=== PATIENT | female | born 1955 | race African-American/Black ===

== ENCOUNTER 2016-03-11 10:51 | Inpatient (IN) | payer MEDICARE, OTHER ==
[~2016-03-11] VITALS: Ht 157.5 cm; Wt 81.6 kg
[~2016-03-11 10:51] MED LIST: OXYC-323 PO
[2016-03-11] MEDS ORDERED: IV NORMAL SALINE 1000ML BAG 1,000 ML IV SCH (11:31)
[2016-03-11] MEDS ORDERED: FAMOTIDINE 20 MG/2 ML VIAL IVP ONE (11:45)
[2016-03-11] MEDS ORDERED: ONDANSETRON PF 4 MG/2 ML VIAL. IV ONE (11:45)
[2016-03-11] MEDS: FENTANYL PF 100 MCG/2 ML VIAL. IV PRN ×2 (11:59→13:22)
[2016-03-11 12:06] LABS: BASO % 1 % (0-3); EOS % 2 % (0-3); HEMOGLOBIN 16.6 g/dL (12.0-15.5); LYMPH # 2.4 x10^3/uL (1.0-4.8); LYMPH % 43 % (24-48); MEAN CORPUSCULAR HEMOGLOBIN 31 pg (25-35); MEAN CORPUSCULAR HGB CONC 34 g/dL (31-37); MEAN CORPUSCULAR VOLUME 90 fL (79-100); MONO % 7 % (0-9); NEUT % 49 % (31-73); PLATELET COUNT 171 x10^3/uL (140-400); RED BLOOD COUNT 5.44 x10^6/uL (3.50-5.40); RED CELL DISTRIBUTION WIDTH 14.5 % (11.5-14.5); WHITE BLOOD COUNT 5.5 x10^3/uL (4.0-11.0)
[2016-03-11 12:12] LABS: CALCIUM 9.5 mg/dL (8.5-10.1); CREATININE 0.8 mg/dL (0.6-1.0); GFR 88.5
[2016-03-11] MEDS ORDERED: CONTRAST GIVEN MC PRN (12:15)
[2016-03-11] MEDS ORDERED: IOHEXOL 300 MG/ML 75 ML VIAL IV ONE (12:15)
[2016-03-11 12:18] LABS: ALBUMIN 4.3 g/dL (3.4-5.0); TOTAL BILIRUBIN 0.5 mg/dL (0.2-1.0); TOTAL PROTEIN 8.5 g/dL (6.4-8.2)
[2016-03-11] MEDS ORDERED: hydrALAZINE 20 MG/ML VIAL. IVP ONE (12:30)
--- NOTE | 2016-03-11 12:40 | EKG ---
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
--- NOTE | 2016-03-11 13:02 | RAD ---
EXAM: Abdomen and pelvis CT with intravenous contrast. HISTORY: Epigastric pain. TECHNIQUE: Computed tomographic images of the abdomen and pelvis were obtained following the administration of 75 cc Omnipaque 300 intravenous contrast. Multiplanar reformatting was performed. COMPARISON: None. FINDINGS: Evaluation of the lower thorax demonstrates right middle lobe atelectasis or scarring and basilar atelectasis. There is no infiltrate or effusion. There is hepatic steatosis. The gallbladder, pancreas, spleen and adrenal glands are unremarkable. There are multiple bilateral renal cysts, the largest of which measures 5.8 cm within the left lower pole. No solid renal lesion is seen. There is no hydronephrosis. The appendix is unremarkable. There is no evidence of bowel obstruction. The bladder, uterus and ovaries are unremarkable. There is no pathologically enlarged lymph node. There is no suspicious osseous lesion. There are degenerative changes involving the lower lumbar spine. IMPRESSION: 1. Hepatic steatosis. 2. Multiple bilateral renal cysts. PQRS Compliance Statement: One or more of the following individualized dose reduction techniques were utilized for this examination: 1. Automated exposure control 2. Adjustment of the mA and/or kV according to patient size 3. Use of iterative reconstruction technique
[2016-03-11 13:34] LABS: BILIRUBIN,URINE NEGATIVE (NEG); GLUCOSE,URINE 250 mg/dL (NEG); NITRITE,URINE NEGATIVE (NEG); PROTEIN,URINE NEGATIVE (NEG-TRACE)
[2016-03-11 13:42] LABS: BACTERIA,URINE MODERATE /HPF (0-FEW); RBC,URINE 0 /HPF (0-2); SQUAMOUS EPITHELIAL CELL,UR MOD /LPF
[2016-03-11] MEDS ORDERED: ONDANSETRON PF 4 MG/2 ML VIAL. IV PRN (14:30)
[2016-03-11] MEDS ORDERED: FENTANYL PF 100 MCG/2 ML VIAL. IV PRN (14:30)
[2016-03-11] MEDS ORDERED: ACETAMINOPHEN 325 MG TABLET. PO PRN (14:30)
[2016-03-11] MEDS ORDERED: hydrALAZINE 20 MG/ML VIAL. IVP PRN (14:30)
--- NOTE | 2016-03-11 14:30 | PHYS DOC ---
Past Medical History Past Medical History: Diabetes-Type II, High Cholesterol, Hypertension Past Surgical History: No Surgical History Alcohol Use: None Drug Use: None Adult General Chief Complaint Chief Complaint: ABDOMINAL PAIN HPI HPI Patient is a 60 year old female who presents with complaint of severe abdominal pain. Patient states that she has been having pain in her left upper quadrant for the past 2 weeks, however the pain has become quite severe over the past 24 hours. Patient rates her pain currently is 10 out of 10. Patient describes the pain as a "knot" sensation in her stomach. Patient states that radiates towards the left side of her back. Patient denies associated vomiting but has had nausea. Patient has not had any fevers or diarrhea. The patient states that she has not had any previous workup but she is concerned that it may be her gallbladder. Patient has history of hypertension and type 2 diabetes mellitus. Patient has not taken any medications to help with symptoms. Review of Systems Review of Systems Constitutional: Denies fever or chills [] Eyes: Denies change in visual acuity, redness, or eye pain [] HENT: Denies nasal congestion or sore throat [] Respiratory: Denies cough or shortness of breath [] Cardiovascular: No additional information not addressed in HPI [] GI: Abdominal pain, denies nausea, vomiting, bloody stools or diarrhea [] : Denies dysuria or hematuria [] Musculoskeletal: Denies back pain or joint pain [] Integument: Denies rash or skin lesions [] Neurologic: Denies headache, focal weakness or sensory changes [] Current Medications Current Medications Current Medications Medications (Trade) Dose Ordered Sig/Brittni Start Time Stop Time Status Last Admin Dose Admin Famotidine (Pepcid) 20 mg 1X ONCE 03/11/16 11:45 03/11/16 11:46 DC 03/11/16 11:55 20 MG Fentanyl Citrate 50 mcg 50 mcg PRN Q15MIN PRN 03/11/16 11:45 03/12/16 11:44 03/11/16 13:22 50 MCG Hydralazine HCl (Apresoline) 10 mg 1X ONCE 03/11/16 12:30 03/11/16 12:31 DC 03/11/16 13:19 10 MG Info (Do NOT chart on this entry -- for MONITORING) 1 each PRN DAILY PRN 03/11/16 12:15 03/13/16 12:14 Iohexol (Omnipaque 300 Mg/ml) 75 ml 1X ONCE 03/11/16 12:15 03/11/16 12:16 DC 03/11/16 12:31 75 ML Ondansetron HCl (Zofran) 4 mg 1X ONCE 03/11/16 11:45 03/11/16 11:46 DC 03/11/16 11:53 4 MG Sodium Chloride (Iv Sodium Chloride 0.9% 1000ml Bag) 1,000 ml @ 1,000 mls/hr Q1H 03/11/16 11:31 03/11/16 12:30 DC 03/11/16 11:53 1,000 MLS/HR Allergies Allergies Allergies Coded Allergies Type Severity Reaction Last Updated Verified No Known Drug Allergies 11/01/15 No Physical Exam Physical Exam Constitutional: Alert, afebrile, hypertensive, appears in severe discomfort. [] HENT: Normocephalic, atraumatic, bilateral external ears normal, oropharynx moist, no oral exudates, nose normal. [] Eyes: PERRLA, EOMI, conjunctiva normal, no discharge. [] Neck: Normal range of motion, no tenderness, supple, no stridor. [] Cardiovascular:Heart rate regular rhythm, no murmur [] Lungs & Thorax: Bilateral breath sounds clear to auscultation [] Abdomen: Bowel sounds normal, soft, epigastric and left upper quadrant tenderness to palpation with guarding, no rebound tenderness. [] Skin: Warm, dry, no erythema, no rash. [] Back: No tenderness, no CVA tenderness. [] Extremities: No tenderness, no cyanosis, no clubbing, ROM intact, no edema. [] Neurologic: Alert and oriented X 3, normal motor function, normal sensory function, no focal deficits noted. [] Current Patient Data Vital Signs Vital Signs Date Time Temp Pulse Resp B/P Pulse Ox O2 Delivery O2 Flow Rate FiO2 03/11/16 13:22 21 03/11/16 13:19 68 215/90 03/11/16 11:03 97.9 98 Room Air 97.9 Lab Values Laboratory Tests Test 03/11/16 11:18 03/11/16 13:20 White Blood Count 5.5x10^3/uL (4.0-11.0) Red Blood Count 5.44x10^6/uL (3.50-5.40) H Hemoglobin 16.6g/dL (12.0-15.5) H Hematocrit 49.0% (36.0-47.0) H Mean Corpuscular Volume 90fL (79-100) Mean Corpuscular Hemoglobin 31pg (25-35) Mean Corpuscular Hemoglobin Concent 34g/dL (31-37) Red Cell Distribution Width 14.5% (11.5-14.5) Platelet Count 171x10^3/uL (140-400) Neutrophils (%) (Auto) 49% (31-73) Lymphocytes (%) (Auto) 43% (24-48) Monocytes (%) (Auto) 7% (0-9) Eosinophils (%) (Auto) 2% (0-3) Basophils (%) (Auto) 1% (0-3) Neutrophils # (Auto) 2.7x10^3uL (1.8-7.7) Lymphocytes # (Auto) 2.4x10^3/uL (1.0-4.8) Monocytes # (Auto) 0.4x10^3/uL (0.0-1.1) Eosinophils # (Auto) 0.1x10^3/uL (0.0-0.7) Basophils # (Auto) 0.0x10^3/uL (0.0-0.2) Sodium Level 137mmol/L (136-145) Potassium Level 4.0mmol/L (3.5-5.1) Chloride Level 100mmol/L (98-107) Carbon Dioxide Level 27mmol/L (21-32) Anion Gap 10 (6-14) Blood Urea Nitrogen 9mg/dL (7-20) Creatinine 0.8mg/dL (0.6-1.0) Estimated GFR (Cockcroft-Gault) 88.5 BUN/Creatinine Ratio 11 (6-20) Glucose Level 211mg/dL (70-99) H Calcium Level 9.5mg/dL (8.5-10.1) Total Bilirubin 0.5mg/dL (0.2-1.0) Aspartate Amino Transferase (AST) 13U/L (15-37) L Alanine Aminotransferase (ALT) 36U/L (14-59) Alkaline Phosphatase 128U/L (46-116) H Total Protein 8.5g/dL (6.4-8.2) H Albumin 4.3g/dL (3.4-5.0) Albumin/Globulin Ratio 1.0 (1.0-1.7) Lipase 117U/L (73-393) Urine Collection Type Unknown Urine Color Yellow Urine Clarity Clear Urine pH 6.0 Urine Specific [place] >=1.030 Urine Protein Negativemg/dL (NEG-TRACE) Urine Glucose (UA) 250mg/dL (NEG) Urine Ketones (Stick) Negativemg/dL (NEG) Urine Blood Negative (NEG) Urine Nitrite Negative (NEG) Urine Bilirubin Negative (NEG) Urine Urobilinogen Dipstick 1.0mg/dL (0.2 mg/dL) Urine Leukocyte Esterase Small (NEG) Urine RBC 0/HPF (0-2) Urine WBC 1-4/HPF (0-4) Urine Squamous Epithelial Cells Mod/LPF Urine Bacteria Moderate/HPF (0-FEW) Urine Mucus Mod/LPF Laboratory Tests 03/11/16 11:18 Laboratory Tests 03/11/16 11:18 EKG EKG Interpreted by me: Heart rate 79, sinus rhythm, normal intervals, leftward axis , no acute ST/T-wave abnormalities present Radiology/Procedures Radiology/Procedures [facility] [address] [place] [address] IMAGING REPORT Signed PATIENT: TRICIA KAPLAN ACCOUNT: [id number] : 1955 LOCATION: ER AGE: 60 SEX: F EXAM STATUS: REG ER ORD. PHYSICIAN: VANDANA MALDONADO MD REASON: epigastric and left upper quadrant abdominal pain for 2 weeks PROCEDURE: ABD PELV W/ IV CONTRAST ONLY EXAM: Abdomen and pelvis CT with intravenous contrast. HISTORY: Epigastric pain. TECHNIQUE: Computed tomographic images of the abdomen and pelvis were obtained following the administration of 75 cc Omnipaque 300 intravenous contrast. Multiplanar reformatting was performed. COMPARISON: None. FINDINGS: Evaluation of the lower thorax demonstrates right middle lobe atelectasis or scarring and basilar atelectasis. There is no infiltrate or effusion. There is hepatic steatosis. The gallbladder, pancreas, spleen and adrenal glands are unremarkable. There are multiple bilateral renal cysts, the largest of which measures 5.8 cm within the left lower pole. No solid renal lesion is seen. There is no hydronephrosis. The appendix is unremarkable. There is no evidence of bowel obstruction. The bladder, uterus and ovaries are unremarkable. There is no pathologically enlarged lymph node. There is no suspicious osseous lesion. There are degenerative changes involving the lower lumbar spine. IMPRESSION: 1. Hepatic steatosis. 2. Multiple bilateral renal cysts. PQRS Compliance Statement: One or more of the following individualized dose reduction techniques were utilized for this examination: 1. Automated exposure control 2. Adjustment of the mA and/or kV according to patient size 3. Use of iterative reconstruction technique DICTATED and SIGNED BY: TICO RUGGIERO MD DATE: 03/11/16 1257 CC: VANDANA MALDONADO MD; CHARLES HOWARD MD ~ [] Course & Med Decision Making Course & Med Decision Making Pertinent Labs and Imaging studies reviewed. (See chart for details) Patient was given IV fentanyl, Zofran, Pepcid, IV fluids for pain symptoms. The patient was noted to have accelerated hypertension with a systolic blood pressure to 11. The patient was given IV hydralazine. After treatment, the patient has had improvement in her blood pressure, however the patient states that she is still having severe left-sided pain. Etiology is unclear after blood work and imaging for the patient's pain. Patient states that she is not feel comfortable going home in her current state. The patient will be admitted for further evaluation and symptomatic control. I spoke with Dr. Begum who accepted care patient in hospital. A routine consult was placed to Dr. Purdy of to follow with patient in hospital. Dragon Disclaimer Dragon Disclaimer This electronic medical record was generated, in whole or in part, using a voice recognition dictation system. 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
[2016-03-11] MEDS: IV NORMAL SALINE 1000ML BAG 1,000 ML IV SCH ×2 (15:00→23:46)
[2016-03-11 15:25] VITALS: BP 168/82
[2016-03-11] MEDS ORDERED: LISI40TA PO (15:29)
[2016-03-11] MEDS ORDERED: SIMV20TA3 PO (15:29)
[2016-03-11] MEDS ORDERED: HYDR-971 PO (15:29)
[2016-03-11] MEDS ORDERED: AMLO10TA2 PO (15:29)
[2016-03-11] MEDS ORDERED: METF-550 PO (15:29)
[2016-03-11 15:35] VITALS: BP 168/82
[2016-03-11] MEDS ORDERED: LIDO:MAALOX:DONNATAL 1:1:1 15 ML SINGLE DOSE SWSW PRN (17:45)
--- NOTE | 2016-03-11 17:49 | PDOC2 ---
GI CONSULT Date Date/Time DATE: 03/11/16 TIME: 17:42 Providers Attending Physician Hubert Begum MD Referring Physician Consulting Physician Dr. Del Angel History of Present Illness HPI 60 BF with LUQ pain- ache, fist like- more severe last 2 weeks and increased yesterday- no nausea or vomiting, no diarrhea, no GI bleeding. No history of GERD or regular NSAID use- could not get in to PCP so presented to ER- CT and labs negative. Admitted . Able to eat, afraid of eating last few days BUT no increase pain, nausea etc. No prior EGD or colonoscopy History Past Medical History HTN Review of Systems Constitutional: yes: weakness Gastrointestinal: Yes: abdominal pain (LUQ) Musculoskeletal: Yes: leg pain Allergies Allergies Allergies Coded Allergies Type Severity Reaction Last Updated Verified No Known Drug Allergies 11/01/15 No Medications Medications Current Medications Fentanyl Citrate 50 mcg 50 mcg PRN Q15MIN PRN IV PAIN GREATER THAN 3/10 Last administered on 03/11/16 13:22; Start 03/11/16 at 11:45; Stop 03/12/16 at 11:44 Sodium Chloride (Iv Sodium Chloride 0.9% 1000ml Bag) 1,000 ml @ 1,000 mls/hr Q1H IV Last administered on 03/11/16 11:53; Start 03/11/16 at 11:31; Stop at 12:30; Status DC Ondansetron HCl (Zofran) 4 mg 1X ONCE IV Last administered on 03/11/16 11:53 ; Start 03/11/16 at 11:45; Stop 03/11/16 at 11:46; Status DC Famotidine (Pepcid) 20 mg 1X ONCE IVP Last administered on 03/11/16 11:55; Start 03/11/16 at 11:45; Stop 03/11/16 at 11:46; Status DC Iohexol (Omnipaque 300 Mg/ml) 75 ml 1X ONCE IV Last administered on 03/11/16 12:31; Start 03/11/16 at 12:15; Stop 03/11/16 at 12:16; Status DC Info (Do NOT chart on this entry -- for MONITORING) 1 each PRN DAILY PRN MC SEE COMMENTS; Start 03/11/16 at 12:15; Stop 03/13/16 at 12:14 Hydralazine HCl (Apresoline) 10 mg 1X ONCE IVP Last administered on 03/11/16 13:19; Start 03/11/16 at 12:30; Stop 03/11/16 at 12:31; Status DC Ondansetron HCl (Zofran) 4 mg PRN Q8HRS PRN IV NAUSEA/VOMITING; Start 03/11/16 at 14:30; Stop 03/12/16 at 14:29 Fentanyl Citrate 50 mcg 50 mcg PRN Q2HR PRN IV PAIN Last administered on 15:49; Start 03/11/16 at 14:30; Stop 03/12/16 at 14:29 Sodium Chloride (Iv Sodium Chloride 0.9% 1000ml Bag) 1,000 ml @ 125 mls/hr Q8H IV Last administered on 03/11/16 15:00; Start 03/11/16 at 15:00; Stop at 14:59 Acetaminophen (Tylenol) 650 mg PRN Q4HRS PRN PO FEVER; Start 03/11/16 at 14:30 ; Stop 03/12/16 at 14:29 Hydralazine HCl (Apresoline) 10 mg PRN Q4HRS PRN IVP ELEVATED BP, SEE COMMENTS Last administered on 03/11/16 15:50; Start 03/11/16 at 14:30 Active Scripts Active Reported Webb 5-325 Tablet (Acetaminophen/Hydrocodone Bitart) 1 Each Tablet 1 Tab PO PRN Q8HRS PRN Metformin HCl ER (Metformin HCl) 500 Mg [id number] 500 Mg PO DAILY Simvastatin 20 Mg Tablet 20 Mg PO DAILY Amlodipine Besylate 10 Mg Tablet 10 Mg PO DAILY Lisinopril 40 Mg Tablet 1 Tab PO DAILY Physical Exam Physical Exam VSS chest- clear Cor- RRR abd- obese, soft mildly tender LUQ otherwise negative extrem NO CCE neuro- alert non focal Labs Labs Laboratory Tests Test 03/11/16 11:18 03/11/16 13:20 White Blood Count 5.5x10^3/uL (4.0-11.0) Red Blood Count 5.44x10^6/uL (3.50-5.40) Hemoglobin 16.6g/dL (12.0-15.5) Hematocrit 49.0% (36.0-47.0) Mean Corpuscular Volume 90fL (79-100) Mean Corpuscular Hemoglobin 31pg (25-35) Mean Corpuscular Hemoglobin Concent 34g/dL (31-37) Red Cell Distribution Width 14.5% (11.5-14.5) Platelet Count 171x10^3/uL (140-400) Neutrophils (%) (Auto) 49% (31-73) Lymphocytes (%) (Auto) 43% (24-48) Monocytes (%) (Auto) 7% (0-9) Eosinophils (%) (Auto) 2% (0-3) Basophils (%) (Auto) 1% (0-3) Neutrophils # (Auto) 2.7x10^3uL (1.8-7.7) Lymphocytes # (Auto) 2.4x10^3/uL (1.0-4.8) Monocytes # (Auto) 0.4x10^3/uL (0.0-1.1) Eosinophils # (Auto) 0.1x10^3/uL (0.0-0.7) Basophils # (Auto) 0.0x10^3/uL (0.0-0.2) Sodium Level 137mmol/L (136-145) Potassium Level 4.0mmol/L (3.5-5.1) Chloride Level 100mmol/L (98-107) Carbon Dioxide Level 27mmol/L (21-32) Anion Gap 10 (6-14) Blood Urea Nitrogen 9mg/dL (7-20) Creatinine 0.8mg/dL (0.6-1.0) Estimated GFR (Cockcroft-Gault) 88.5 BUN/Creatinine Ratio 11 (6-20) Glucose Level 211mg/dL (70-99) Calcium Level 9.5mg/dL (8.5-10.1) Total Bilirubin 0.5mg/dL (0.2-1.0) Aspartate Amino Transf (AST/SGOT) 13U/L (15-37) Alanine Aminotransferase (ALT/SGPT) 36U/L (14-59) Alkaline Phosphatase 128U/L (46-116) Total Protein 8.5g/dL (6.4-8.2) Albumin 4.3g/dL (3.4-5.0) Albumin/Globulin Ratio 1.0 (1.0-1.7) Lipase 117U/L (73-393) Urine Collection Type Unknown Urine Color Yellow Urine Clarity Clear Urine pH 6.0 Urine Specific [place] >=1.030 Urine Protein Negativemg/dL (NEG-TRACE) Urine Glucose (UA) 250mg/dL (NEG) Urine Ketones (Stick) Negativemg/dL (NEG) Urine Blood Negative (NEG) Urine Nitrite Negative (NEG) Urine Bilirubin Negative (NEG) Urine Urobilinogen Dipstick 1.0mg/dL (0.2 mg/dL) Urine Leukocyte Esterase Small (NEG) Urine RBC 0/HPF (0-2) Urine WBC 1-4/HPF (0-4) Urine Squamous Epithelial Cells Mod/LPF Urine Bacteria Moderate/HPF (0-FEW) Urine Mucus Mod/LPF Imaging Imaging CT- negative for source of pain Assessment Assessment LUQ pain - for at least 2 weeks, increased this week- no n/v, bleeding, diarrhea, constipation and CT and labs negative- could be gastritis, PUD, even IBS- location and history speaks against gallbladder etc Problems: Plan Plan Add protonic BID empirically Add GI cocktail prn resume liquid diet as tolerated EGD - either on Sunday or as outpt if stable to go home before that Thank you for allowing us to participate in the care of your patient. We will continue to follow the patient with you and provide an appropriate recommendation as it becomes available. PACO DEL ANGEL MD Mar 11, 2016 17:49
[2016-03-11] MEDS: PANTOPRAZOLE 40 MG TABLET. PO SCH (17:55)
--- NOTE | 2016-03-11 18:14 | PDOC1 ---
History and Physical Past Medical History Cardiovascular: HTN Endocrine: Diabetes Past Surgical History Past Surgical History: Other (NONE) Family History Family History dm/htn Social History Smoke: No ALCOHOL: none Drugs: None Current Problem List Problem List Problems Medical Problems: (1) Accelerated hypertension Status: Acute (2) Intractable abdominal pain Status: Acute (3) Type 2 diabetes mellitus Status: Acute Current Medications Current Medications Current Medications Medications (Trade) Dose Ordered Sig/Brittni Start Time Stop Time Status Last Admin Dose Admin Acetaminophen (Tylenol) 650 mg PRN Q4HRS PRN 03/11/16 14:30 03/12/16 14:29 Famotidine (Pepcid) 20 mg 1X ONCE 03/11/16 11:45 03/11/16 11:46 DC 03/11/16 11:55 20 MG Fentanyl Citrate (Fentanyl 2ml Vial) 50 mcg PRN Q15MIN PRN 03/11/16 11:45 03/12/16 11:44 03/11/16 13:22 50 MCG Fentanyl Citrate 50 mcg 50 mcg PRN Q2HR PRN 03/11/16 14:30 03/12/16 14:29 03/11/16 15:49 50 MCG Hydralazine HCl (Apresoline) 10 mg PRN Q4HRS PRN 03/11/16 14:30 03/11/16 15:50 10 MG Info (Do NOT chart on this entry -- for MONITORING) 1 each PRN DAILY PRN 03/11/16 12:15 03/13/16 12:14 Iohexol (Omnipaque 300 Mg/ml) 75 ml 1X ONCE 03/11/16 12:15 03/11/16 12:16 DC 03/11/16 12:31 75 ML Multi-Ingredient Mouthwash/Gargle (Gi Cocktail Single Dose) 15 ml PRN TID PRN 03/11/16 17:45 Ondansetron HCl (Zofran) 4 mg PRN Q8HRS PRN 03/11/16 14:30 03/12/16 14:29 Pantoprazole Sodium (Protonix) 40 mg [id number] 03/11/16 18:00 03/11/16 17:55 40 MG Sodium Chloride (Iv Sodium Chloride 0.9% 1000ml Bag) 1,000 ml @ 125 mls/hr Q8H 03/11/16 15:00 03/12/16 14:59 03/11/16 15:00 125 MLS/HR Allergies Allergies Allergies Coded Allergies Type Severity Reaction Last Updated Verified No Known Drug Allergies 11/01/15 No ROS Review of System CONSTITUTIONAL: No fever or chills EYES: No recent changes SKIN: No rash or itching CARDIOVASCULAR: No chest pain, syncope, palpitations, or edema RESPIRATORY: No SOB or cough GASTROINTESTINAL: No nausea, vomiting or abdominal pain left upper quadrant. NEUROLOGICAL: No headaches or weakness ENDOCRINE: No cold or heat intolerance GENITOURINARY: No urgency or frequency of urination MUSCULOSKELETAL: No back pain or joint pain LYMPHATICS: No enlarged lymph nodes PSYCHIATRIC: No anxiety or depression Physical Exam Physical Exam GEN.: No apparent distress. Alert and oriented. HEENT: Head is normocephalic, atraumatic NECK: Supple. no jvd LUNGS: Clear to auscultation. normal airflow HEART: RRR, S1, S2 present. Peripheral pulses intact ABDOMEN: Soft, LUQ tender. Positive bowel sounds. EXTREMITIES: Without any cyanosis. NEUROLOGIC: Normal speech, normal tone PSYCHIATRIC: Normal affect, normal mood. SKIN: No visible ulcerations Vitals Vitals Vital Signs Date Time Temp Pulse Resp B/P Pulse Ox O2 Delivery O2 Flow Rate FiO2 03/11/16 16:04 18 99 03/11/16 15:50 96 178/68 03/11/16 15:35 97.8 Room Air 97.8 Labs Labs Laboratory Tests Test 03/11/16 11:18 03/11/16 13:20 White Blood Count 5.5x10^3/uL (4.0-11.0) Red Blood Count 5.44x10^6/uL (3.50-5.40) Hemoglobin 16.6g/dL (12.0-15.5) Hematocrit 49.0% (36.0-47.0) Mean Corpuscular Volume 90fL (79-100) Mean Corpuscular Hemoglobin 31pg (25-35) Mean Corpuscular Hemoglobin Concent 34g/dL (31-37) Red Cell Distribution Width 14.5% (11.5-14.5) Platelet Count 171x10^3/uL (140-400) Neutrophils (%) (Auto) 49% (31-73) Lymphocytes (%) (Auto) 43% (24-48) Monocytes (%) (Auto) 7% (0-9) Eosinophils (%) (Auto) 2% (0-3) Basophils (%) (Auto) 1% (0-3) Neutrophils # (Auto) 2.7x10^3uL (1.8-7.7) Lymphocytes # (Auto) 2.4x10^3/uL (1.0-4.8) Monocytes # (Auto) 0.4x10^3/uL (0.0-1.1) Eosinophils # (Auto) 0.1x10^3/uL (0.0-0.7) Basophils # (Auto) 0.0x10^3/uL (0.0-0.2) Sodium Level 137mmol/L (136-145) Potassium Level 4.0mmol/L (3.5-5.1) Chloride Level 100mmol/L (98-107) Carbon Dioxide Level 27mmol/L (21-32) Anion Gap 10 (6-14) Blood Urea Nitrogen 9mg/dL (7-20) Creatinine 0.8mg/dL (0.6-1.0) Estimated GFR (Cockcroft-Gault) 88.5 BUN/Creatinine Ratio 11 (6-20) Glucose Level 211mg/dL (70-99) Calcium Level 9.5mg/dL (8.5-10.1) Total Bilirubin 0.5mg/dL (0.2-1.0) Aspartate Amino Transf (AST/SGOT) 13U/L (15-37) Alanine Aminotransferase (ALT/SGPT) 36U/L (14-59) Alkaline Phosphatase 128U/L (46-116) Total Protein 8.5g/dL (6.4-8.2) Albumin 4.3g/dL (3.4-5.0) Albumin/Globulin Ratio 1.0 (1.0-1.7) Lipase 117U/L (73-393) Urine Collection Type Unknown Urine Color Yellow Urine Clarity Clear Urine pH 6.0 Urine Specific [place] >=1.030 Urine Protein Negativemg/dL (NEG-TRACE) Urine Glucose (UA) 250mg/dL (NEG) Urine Ketones (Stick) Negativemg/dL (NEG) Urine Blood Negative (NEG) Urine Nitrite Negative (NEG) Urine Bilirubin Negative (NEG) Urine Urobilinogen Dipstick 1.0mg/dL (0.2 mg/dL) Urine Leukocyte Esterase Small (NEG) Urine RBC 0/HPF (0-2) Urine WBC 1-4/HPF (0-4) Urine Squamous Epithelial Cells Mod/LPF Urine Bacteria Moderate/HPF (0-FEW) Urine Mucus Mod/LPF Laboratory Tests Test 03/11/16 11:18 03/11/16 13:20 White Blood Count 5.5x10^3/uL (4.0-11.0) Red Blood Count 5.44x10^6/uL (3.50-5.40) Hemoglobin 16.6g/dL (12.0-15.5) Hematocrit 49.0% (36.0-47.0) Mean Corpuscular Volume 90fL (79-100) Mean Corpuscular Hemoglobin 31pg (25-35) Mean Corpuscular Hemoglobin Concent 34g/dL (31-37) Red Cell Distribution Width 14.5% (11.5-14.5) Platelet Count 171x10^3/uL (140-400) Neutrophils (%) (Auto) 49% (31-73) Lymphocytes (%) (Auto) 43% (24-48) Monocytes (%) (Auto) 7% (0-9) Eosinophils (%) (Auto) 2% (0-3) Basophils (%) (Auto) 1% (0-3) Neutrophils # (Auto) 2.7x10^3uL (1.8-7.7) Lymphocytes # (Auto) 2.4x10^3/uL (1.0-4.8) Monocytes # (Auto) 0.4x10^3/uL (0.0-1.1) Eosinophils # (Auto) 0.1x10^3/uL (0.0-0.7) Basophils # (Auto) 0.0x10^3/uL (0.0-0.2) Sodium Level 137mmol/L (136-145) Potassium Level 4.0mmol/L (3.5-5.1) Chloride Level 100mmol/L (98-107) Carbon Dioxide Level 27mmol/L (21-32) Anion Gap 10 (6-14) Blood Urea Nitrogen 9mg/dL (7-20) Creatinine 0.8mg/dL (0.6-1.0) Estimated GFR (Cockcroft-Gault) 88.5 BUN/Creatinine Ratio 11 (6-20) Glucose Level 211mg/dL (70-99) Calcium Level 9.5mg/dL (8.5-10.1) Total Bilirubin 0.5mg/dL (0.2-1.0) Aspartate Amino Transf (AST/SGOT) 13U/L (15-37) Alanine Aminotransferase (ALT/SGPT) 36U/L (14-59) Alkaline Phosphatase 128U/L (46-116) Total Protein 8.5g/dL (6.4-8.2) Albumin 4.3g/dL (3.4-5.0) Albumin/Globulin Ratio 1.0 (1.0-1.7) Lipase 117U/L (73-393) Urine Collection Type Unknown Urine Color Yellow Urine Clarity Clear Urine pH 6.0 Urine Specific [place] >=1.030 Urine Protein Negativemg/dL (NEG-TRACE) Urine Glucose (UA) 250mg/dL (NEG) Urine Ketones (Stick) Negativemg/dL (NEG) Urine Blood Negative (NEG) Urine Nitrite Negative (NEG) Urine Bilirubin Negative (NEG) Urine Urobilinogen Dipstick 1.0mg/dL (0.2 mg/dL) Urine Leukocyte Esterase Small (NEG) Urine RBC 0/HPF (0-2) Urine WBC 1-4/HPF (0-4) Urine Squamous Epithelial Cells Mod/LPF Urine Bacteria Moderate/HPF (0-FEW) Urine Mucus Mod/LPF VTE Prophylaxis Ordered VTE Prophylaxis Devices: Yes VTE Pharmacological Prophylaxi: No ABDULAZIZ LOBO MD Mar 11, 2016 18:14
[2016-03-11] MEDS ORDERED: DEXTROSE 50% 25 GM / 50ML DISP.SYRIN. IV PRN (18:15)
[2016-03-11] MEDS ORDERED: MORPHINE SULFATE 2 MG/ML DISP.SYRIN. IV PRN (18:30)
[2016-03-11] MEDS: INSULIN ASPART 300 UNITS/3 ML INSULN.PEN SQ SCH (18:30)
[2016-03-11 19:36] VITALS: BP 138/54
--- NOTE | 2016-03-11 20:54 | HP ---
ADMIT DATE: 03/11/2016 CHIEF COMPLAINT: Abdominal pain. HISTORY OF PRESENT ILLNESS: A 60-year-old female patient with prior history of diabetes mellitus, hypertension, presented to the ER with complaints of left upper quadrant pain, present for nearly 2 weeks; however, the patient's pain has been slowly getting worse for the last 24 hours. Currently, she described it as squeezing and knotting. It is in the left upper quadrant, no radiation. It is moving between epigastric and left upper quadrant region, better with pain medications. Currently, it is described as 10/10. No nausea, vomiting, hematemesis or hematochezia. No prior surgeries or any other complaints such as gallbladder surgery or ulcers. PAST MEDICAL HISTORY: Please see my electronic H and P. REVIEW OF SYSTEMS: Please see my electronic H and P. LABORATORY FINDINGS: Hemoglobin is 16.6, hematocrit 49.0, WBC 5.5, platelets 171. Sodium is 137, potassium 4.0, chloride 100, anion gap is 10, creatinine is 0.8, glucose is 211. Total bilirubin 0.5, AST 13, ALT 36, alkaline phosphatase 128, lipase is 117. Urine pH is 6.0, specific gravity 1.023, glucose 250, ketones negative, nitrites negative, leukocyte esterase is small. IMAGING STUDIES: CT of the abdomen showed hepatic steatosis, multiple bilateral renal cysts, the maximum measurement was 5.8 cm in the left lower pole. ASSESSMENT AND PLAN: 1. Intractable abdominal pain in the left upper quadrant, unclear etiology. 2. Increased hematocrit. 3. Mild hyperglycemia, type 2 diabetes mellitus. 4. Hypertension. PLAN: 1. We will keep patient n.p.o. and start her on GI cocktail. 2. Treat her with IV morphine for pain control. 3. Monitor hemoglobin. 4. Gastroenterology has been consulted. 5. IV hydration at 75 mL per hour normal saline. 6. Sliding scale insulin. 7. Resume home medications. 8. We will order ultrasound or the Doppler to rule out any gallbladder disease, which is very less likely. 9. Also, I ordered a chest x-ray to rule out any pneumonia. ABDULAZIZ LOBO MD DR: DAMIAN/jase JOB#: [id number] / [id number] MTDD
[2016-03-11 23:15] VITALS: BP 135/50
[2016-03-12 03:00] VITALS: BP 136/74
[2016-03-12 05:17] LABS: BASO % 1 % (0-3); EOS % 3 % (0-3); HEMATOCRIT 41.3 % (36.0-47.0); HEMOGLOBIN 13.9 g/dL (12.0-15.5); LYMPH # 2.2 x10^3/uL (1.0-4.8); LYMPH % 47 % (24-48); MEAN CORPUSCULAR HEMOGLOBIN 31 pg (25-35); MEAN CORPUSCULAR HGB CONC 34 g/dL (31-37); MEAN CORPUSCULAR VOLUME 91 fL (79-100); MONO % 8 % (0-9); NEUT % 41 % (31-73); PLATELET COUNT 148 x10^3/uL (140-400); RED BLOOD COUNT 4.53 x10^6/uL (3.50-5.40); RED CELL DISTRIBUTION WIDTH 14.5 % (11.5-14.5); WHITE BLOOD COUNT 4.7 x10^3/uL (4.0-11.0)
[2016-03-12] MEDS: PANTOPRAZOLE 40 MG TABLET. PO SCH ×2 (05:48→17:22)
[2016-03-12 06:18] LABS: CALCIUM 8.7 mg/dL (8.5-10.1); CREATININE 0.7 mg/dL (0.6-1.0); GFR 103.3; POTASSIUM 3.7 mmol/L (3.5-5.1)
[2016-03-12] MEDS: IV NORMAL SALINE 1000ML BAG 1,000 ML IV SCH (07:00)
[2016-03-12 07:08] VITALS: BP 160/50
[2016-03-12] MEDS: INSULIN ASPART 300 UNITS/3 ML INSULN.PEN SQ SCH ×3 (08:00→17:48)
[2016-03-12] MEDS ORDERED: METFORMIN HCL 500 MG PO SCH (09:30)
--- NOTE | 2016-03-12 10:15 | RAD ---
EXAM: Chest, 2 views. HISTORY: Pain. COMPARISON: None. FINDINGS: Frontal and lateral views of the chest are obtained. There is lower lobe atelectasis. There is no infiltrate, effusion or pneumothorax. The heart is normal in size. IMPRESSION: No acute pulmonary finding.
[2016-03-12 11:02] VITALS: BP 136/61
--- NOTE | 2016-03-12 11:17 | PDOC ---
GI PROGRESS NOTES Date Date/Time DATE: 03/12/16 TIME: 11:13 Subjective Subjective somewhat improved Objective Vitals Vital Signs Date Time Temp Pulse Resp B/P Pulse Ox O2 Delivery O2 Flow Rate FiO2 03/12/16 07:08 97.7 68 18 160/50 96 Room Air 97.7 03/12/16 03:00 97.9 73 18 136/74 100 Room Air 97.9 03/11/16 23:15 97.7 73 18 135/50 95 Room Air 97.7 03/11/16 20:00 Room Air 03/11/16 19:36 97.7 80 18 138/54 99 Room Air 97.7 03/11/16 16:04 18 99 03/11/16 16:04 18 99 03/11/16 15:50 96 178/68 03/11/16 15:49 18 99 03/11/16 15:35 97.8 84 18 168/82 99 Room Air 97.8 03/11/16 15:25 97.8 84 18 168/82 99 Room Air 97.8 03/11/16 15:20 Room Air 03/11/16 13:22 21 03/11/16 13:19 68 215/90 Labs Labs Laboratory Tests Test 03/11/16 11:18 03/11/16 13:20 03/12/16 04:30 03/12/16 08:24 White Blood Count 5.5x10^3/uL (4.0-11.0) 4.7x10^3/uL (4.0-11.0) Red Blood Count 5.44x10^6/uL (3.50-5.40) 4.53x10^6/uL (3.50-5.40) Hemoglobin 16.6g/dL (12.0-15.5) 13.9g/dL (12.0-15.5) Hematocrit 49.0% (36.0-47.0) 41.3% (36.0-47.0) Mean Corpuscular Volume 90fL (79-100) 91fL (79-100) Mean Corpuscular Hemoglobin 31pg (25-35) 31pg (25-35) Mean Corpuscular Hemoglobin Concent 34g/dL (31-37) 34g/dL (31-37) Red Cell Distribution Width 14.5% (11.5-14.5) 14.5% (11.5-14.5) Platelet Count 171x10^3/uL (140-400) 148x10^3/uL (140-400) Neutrophils (%) (Auto) 49% (31-73) 41% (31-73) Lymphocytes (%) (Auto) 43% (24-48) 47% (24-48) Monocytes (%) (Auto) 7% (0-9) 8% (0-9) Eosinophils (%) (Auto) 2% (0-3) 3% (0-3) Basophils (%) (Auto) 1% (0-3) 1% (0-3) Neutrophils # (Auto) 2.7x10^3uL (1.8-7.7) 2.0x10^3uL (1.8-7.7) Lymphocytes # (Auto) 2.4x10^3/uL (1.0-4.8) 2.2x10^3/uL (1.0-4.8) Monocytes # (Auto) 0.4x10^3/uL (0.0-1.1) 0.4x10^3/uL (0.0-1.1) Eosinophils # (Auto) 0.1x10^3/uL (0.0-0.7) 0.1x10^3/uL (0.0-0.7) Basophils # (Auto) 0.0x10^3/uL (0.0-0.2) 0.0x10^3/uL (0.0-0.2) Sodium Level 137mmol/L (136-145) 138mmol/L (136-145) Potassium Level 4.0mmol/L (3.5-5.1) 3.7mmol/L (3.5-5.1) Chloride Level 100mmol/L (98-107) 105mmol/L (98-107) Carbon Dioxide Level 27mmol/L (21-32) 24mmol/L (21-32) Anion Gap 10 (6-14) 9 (6-14) Blood Urea Nitrogen 9mg/dL (7-20) 7mg/dL (7-20) Creatinine 0.8mg/dL (0.6-1.0) 0.7mg/dL (0.6-1.0) Estimated GFR (Cockcroft-Gault) 88.5 103.3 BUN/Creatinine Ratio 11 (6-20) Glucose Level 211mg/dL (70-99) 168mg/dL (70-99) Calcium Level 9.5mg/dL (8.5-10.1) 8.7mg/dL (8.5-10.1) Total Bilirubin 0.5mg/dL (0.2-1.0) Aspartate Amino Transf (AST/SGOT) 13U/L (15-37) Alanine Aminotransferase (ALT/SGPT) 36U/L (14-59) Alkaline Phosphatase 128U/L (46-116) Total Protein 8.5g/dL (6.4-8.2) Albumin 4.3g/dL (3.4-5.0) Albumin/Globulin Ratio 1.0 (1.0-1.7) Lipase 117U/L (73-393) Urine Collection Type Unknown Urine Color Yellow Urine Clarity Clear Urine pH 6.0 Urine Specific [place] >=1.030 Urine Protein Negativemg/dL (NEG-TRACE) Urine Glucose (UA) 250mg/dL (NEG) Urine Ketones (Stick) Negativemg/dL (NEG) Urine Blood Negative (NEG) Urine Nitrite Negative (NEG) Urine Bilirubin Negative (NEG) Urine Urobilinogen Dipstick 1.0mg/dL (0.2 mg/dL) Urine Leukocyte Esterase Small (NEG) Urine RBC 0/HPF (0-2) Urine WBC 1-4/HPF (0-4) Urine Squamous Epithelial Cells Mod/LPF Urine Bacteria Moderate/HPF (0-FEW) Urine Mucus Mod/LPF Glucose (Fingerstick) 248mg/dL (70-99) Physical Exam Physical Exam VSS abd- obese, soft mildly tender LUQ otherwise negative Assessment Assessment LUQ pain- started on protonix and prn GI cocktail Needs EGD- can proceed LATE tomorrow afternoon (with Dr. Purdy) OR can go home and arrange as outpt later next week- both options we discussed Problems: PACO SNOWDEN MD Mar 12, 2016 11:17
--- NOTE | 2016-03-12 11:53 | PDOC ---
PROGRESS NOTES Chief Complaint Chief Complaint A/P 1. Intractable abdominal pain in the left upper quadrant, unclear etiology. 2. Increased hematocrit. 3. Mild hyperglycemia, type 2 diabetes mellitus. 4. Hypertension. Plan NPO IVF fluids Pain control with iv morphine SSI GI consult EGD in am labs reviewed Vitals Vitals Vital Signs Date Time Temp Pulse Resp B/P Pulse Ox O2 Delivery O2 Flow Rate FiO2 03/12/16 11:02 97.7 69 18 136/61 99 Room Air 97.7 Physical Exam General: Alert, Oriented X3, Cooperative Heart: Normal S1, Normal S2 Lungs: Clear, Wheezing Abdomen: Normal bowel sounds, Soft Extremities: No clubbing Labs LABS Laboratory Tests Test 03/11/16 13:20 03/12/16 04:30 03/12/16 08:24 Urine Collection Type Unknown Urine Color Yellow Urine Clarity Clear Urine pH 6.0 Urine Specific Roy >=1.030 Urine Protein Negativemg/dL (NEG-TRACE) Urine Glucose (UA) 250mg/dL (NEG) Urine Ketones (Stick) Negativemg/dL (NEG) Urine Blood Negative (NEG) Urine Nitrite Negative (NEG) Urine Bilirubin Negative (NEG) Urine Urobilinogen Dipstick 1.0mg/dL (0.2 mg/dL) Urine Leukocyte Esterase Small (NEG) Urine RBC 0/HPF (0-2) Urine WBC 1-4/HPF (0-4) Urine Squamous Epithelial Cells Mod/LPF Urine Bacteria Moderate/HPF (0-FEW) Urine Mucus Mod/LPF White Blood Count 4.7x10^3/uL (4.0-11.0) Red Blood Count 4.53x10^6/uL (3.50-5.40) Hemoglobin 13.9g/dL (12.0-15.5) Hematocrit 41.3% (36.0-47.0) Mean Corpuscular Volume 91fL (79-100) Mean Corpuscular Hemoglobin 31pg (25-35) Mean Corpuscular Hemoglobin Concent 34g/dL (31-37) Red Cell Distribution Width 14.5% (11.5-14.5) Platelet Count 148x10^3/uL (140-400) Neutrophils (%) (Auto) 41% (31-73) Lymphocytes (%) (Auto) 47% (24-48) Monocytes (%) (Auto) 8% (0-9) Eosinophils (%) (Auto) 3% (0-3) Basophils (%) (Auto) 1% (0-3) Neutrophils # (Auto) 2.0x10^3uL (1.8-7.7) Lymphocytes # (Auto) 2.2x10^3/uL (1.0-4.8) Monocytes # (Auto) 0.4x10^3/uL (0.0-1.1) Eosinophils # (Auto) 0.1x10^3/uL (0.0-0.7) Basophils # (Auto) 0.0x10^3/uL (0.0-0.2) Sodium Level 138mmol/L (136-145) Potassium Level 3.7mmol/L (3.5-5.1) Chloride Level 105mmol/L (98-107) Carbon Dioxide Level 24mmol/L (21-32) Anion Gap 9 (6-14) Blood Urea Nitrogen 7mg/dL (7-20) Creatinine 0.7mg/dL (0.6-1.0) Estimated GFR (Cockcroft-Gault) 103.3 Glucose Level 168mg/dL (70-99) Calcium Level 8.7mg/dL (8.5-10.1) Glucose (Fingerstick) 248mg/dL (70-99) Assessment and Plan Assessmemt and Plan Problems Medical Problems: (1) Accelerated hypertension Status: Acute (2) Intractable abdominal pain Status: Acute (3) Type 2 diabetes mellitus Status: Acute Problems: Comment Review of Relevant I have reviewed the following items mark anthony (where applicable) has been applied. Labs Laboratory Tests Test 03/11/16 11:18 03/11/16 13:20 03/12/16 04:30 03/12/16 08:24 White Blood Count 5.5x10^3/uL (4.0-11.0) 4.7x10^3/uL (4.0-11.0) Red Blood Count 5.44x10^6/uL (3.50-5.40) 4.53x10^6/uL (3.50-5.40) Hemoglobin 16.6g/dL (12.0-15.5) 13.9g/dL (12.0-15.5) Hematocrit 49.0% (36.0-47.0) 41.3% (36.0-47.0) Mean Corpuscular Volume 90fL (79-100) 91fL (79-100) Mean Corpuscular Hemoglobin 31pg (25-35) 31pg (25-35) Mean Corpuscular Hemoglobin Concent 34g/dL (31-37) 34g/dL (31-37) Red Cell Distribution Width 14.5% (11.5-14.5) 14.5% (11.5-14.5) Platelet Count 171x10^3/uL (140-400) 148x10^3/uL (140-400) Neutrophils (%) (Auto) 49% (31-73) 41% (31-73) Lymphocytes (%) (Auto) 43% (24-48) 47% (24-48) Monocytes (%) (Auto) 7% (0-9) 8% (0-9) Eosinophils (%) (Auto) 2% (0-3) 3% (0-3) Basophils (%) (Auto) 1% (0-3) 1% (0-3) Neutrophils # (Auto) 2.7x10^3uL (1.8-7.7) 2.0x10^3uL (1.8-7.7) Lymphocytes # (Auto) 2.4x10^3/uL (1.0-4.8) 2.2x10^3/uL (1.0-4.8) Monocytes # (Auto) 0.4x10^3/uL (0.0-1.1) 0.4x10^3/uL (0.0-1.1) Eosinophils # (Auto) 0.1x10^3/uL (0.0-0.7) 0.1x10^3/uL (0.0-0.7) Basophils # (Auto) 0.0x10^3/uL (0.0-0.2) 0.0x10^3/uL (0.0-0.2) Sodium Level 137mmol/L (136-145) 138mmol/L (136-145) Potassium Level 4.0mmol/L (3.5-5.1) 3.7mmol/L (3.5-5.1) Chloride Level 100mmol/L (98-107) 105mmol/L (98-107) Carbon Dioxide Level 27mmol/L (21-32) 24mmol/L (21-32) Anion Gap 10 (6-14) 9 (6-14) Blood Urea Nitrogen 9mg/dL (7-20) 7mg/dL (7-20) Creatinine 0.8mg/dL (0.6-1.0) 0.7mg/dL (0.6-1.0) Estimated GFR (Cockcroft-Gault) 88.5 103.3 BUN/Creatinine Ratio 11 (6-20) Glucose Level 211mg/dL (70-99) 168mg/dL (70-99) Calcium Level 9.5mg/dL (8.5-10.1) 8.7mg/dL (8.5-10.1) Total Bilirubin 0.5mg/dL (0.2-1.0) Aspartate Amino Transf (AST/SGOT) 13U/L (15-37) Alanine Aminotransferase (ALT/SGPT) 36U/L (14-59) Alkaline Phosphatase 128U/L (46-116) Total Protein 8.5g/dL (6.4-8.2) Albumin 4.3g/dL (3.4-5.0) Albumin/Globulin Ratio 1.0 (1.0-1.7) Lipase 117U/L (73-393) Urine Collection Type Unknown Urine Color Yellow Urine Clarity Clear Urine pH 6.0 Urine Specific Roy >=1.030 Urine Protein Negativemg/dL (NEG-TRACE) Urine Glucose (UA) 250mg/dL (NEG) Urine Ketones (Stick) Negativemg/dL (NEG) Urine Blood Negative (NEG) Urine Nitrite Negative (NEG) Urine Bilirubin Negative (NEG) Urine Urobilinogen Dipstick 1.0mg/dL (0.2 mg/dL) Urine Leukocyte Esterase Small (NEG) Urine RBC 0/HPF (0-2) Urine WBC 1-4/HPF (0-4) Urine Squamous Epithelial Cells Mod/LPF Urine Bacteria Moderate/HPF (0-FEW) Urine Mucus Mod/LPF Glucose (Fingerstick) 248mg/dL (70-99) Laboratory Tests Test 03/11/16 13:20 03/12/16 04:30 03/12/16 08:24 Urine Collection Type Unknown Urine Color Yellow Urine Clarity Clear Urine pH 6.0 Urine Specific Roy >=1.030 Urine Protein Negativemg/dL (NEG-TRACE) Urine Glucose (UA) 250mg/dL (NEG) Urine Ketones (Stick) Negativemg/dL (NEG) Urine Blood Negative (NEG) Urine Nitrite Negative (NEG) Urine Bilirubin Negative (NEG) Urine Urobilinogen Dipstick 1.0mg/dL (0.2 mg/dL) Urine Leukocyte Esterase Small (NEG) Urine RBC 0/HPF (0-2) Urine WBC 1-4/HPF (0-4) Urine Squamous Epithelial Cells Mod/LPF Urine Bacteria Moderate/HPF (0-FEW) Urine Mucus Mod/LPF White Blood Count 4.7x10^3/uL (4.0-11.0) Red Blood Count 4.53x10^6/uL (3.50-5.40) Hemoglobin 13.9g/dL (12.0-15.5) Hematocrit 41.3% (36.0-47.0) Mean Corpuscular Volume 91fL (79-100) Mean Corpuscular Hemoglobin 31pg (25-35) Mean Corpuscular Hemoglobin Concent 34g/dL (31-37) Red Cell Distribution Width 14.5% (11.5-14.5) Platelet Count 148x10^3/uL (140-400) Neutrophils (%) (Auto) 41% (31-73) Lymphocytes (%) (Auto) 47% (24-48) Monocytes (%) (Auto) 8% (0-9) Eosinophils (%) (Auto) 3% (0-3) Basophils (%) (Auto) 1% (0-3) Neutrophils # (Auto) 2.0x10^3uL (1.8-7.7) Lymphocytes # (Auto) 2.2x10^3/uL (1.0-4.8) Monocytes # (Auto) 0.4x10^3/uL (0.0-1.1) Eosinophils # (Auto) 0.1x10^3/uL (0.0-0.7) Basophils # (Auto) 0.0x10^3/uL (0.0-0.2) Sodium Level 138mmol/L (136-145) Potassium Level 3.7mmol/L (3.5-5.1) Chloride Level 105mmol/L (98-107) Carbon Dioxide Level 24mmol/L (21-32) Anion Gap 9 (6-14) Blood Urea Nitrogen 7mg/dL (7-20) Creatinine 0.7mg/dL (0.6-1.0) Estimated GFR (Cockcroft-Gault) 103.3 Glucose Level 168mg/dL (70-99) Calcium Level 8.7mg/dL (8.5-10.1) Glucose (Fingerstick) 248mg/dL (70-99) Medications Current Medications Fentanyl Citrate 50 mcg 50 mcg PRN Q15MIN PRN IV PAIN GREATER THAN 3/10 Last administered on 03/11/16 13:22; Start 03/11/16 at 11:45; Stop 03/11/16 at 18:19 ; Status DC Sodium Chloride (Iv Sodium Chloride 0.9% 1000ml Bag) 1,000 ml @ 1,000 mls/hr Q1H IV Last administered on 03/11/16 11:53; Start 03/11/16 at 11:31; Stop at 12:30; Status DC Ondansetron HCl (Zofran) 4 mg 1X ONCE IV Last administered on 03/11/16 11:53 ; Start 03/11/16 at 11:45; Stop 03/11/16 at 11:46; Status DC Famotidine (Pepcid) 20 mg 1X ONCE IVP Last administered on 03/11/16 11:55; Start 03/11/16 at 11:45; Stop 03/11/16 at 11:46; Status DC Iohexol (Omnipaque 300 Mg/ml) 75 ml 1X ONCE IV Last administered on 03/11/16 12:31; Start 03/11/16 at 12:15; Stop 03/11/16 at 12:16; Status DC Info (Do NOT chart on this entry -- for MONITORING) 1 each PRN DAILY PRN MC SEE COMMENTS; Start 03/11/16 at 12:15; Stop 03/13/16 at 12:14 Hydralazine HCl (Apresoline) 10 mg 1X ONCE IVP Last administered on 03/11/16 13:19; Start 03/11/16 at 12:30; Stop 03/11/16 at 12:31; Status DC Ondansetron HCl (Zofran) 4 mg PRN Q8HRS PRN IV NAUSEA/VOMITING; Start 03/11/16 at 14:30; Stop 03/12/16 at 14:29 Fentanyl Citrate 50 mcg 50 mcg PRN Q2HR PRN IV PAIN Last administered on 15:49; Start 03/11/16 at 14:30; Stop 03/12/16 at 14:29 Sodium Chloride (Iv Sodium Chloride 0.9% 1000ml Bag) 1,000 ml @ 125 mls/hr Q8H IV Last administered on 03/12/16 07:00; Start 03/11/16 at 15:00; Stop at 14:59 Acetaminophen (Tylenol) 650 mg PRN Q4HRS PRN PO FEVER Last administered on 03/11 19:51; Start 03/11/16 at 14:30; Stop 03/12/16 at 14:29 Hydralazine HCl (Apresoline) 10 mg PRN Q4HRS PRN IVP ELEVATED BP, SEE COMMENTS Last administered on 03/11/16 15:50; Start 03/11/16 at 14:30 Pantoprazole Sodium (Protonix) 40 mg [id number] PO Last administered on 03/12/16 05 :48; Start 03/11/16 at 18:00 Multi-Ingredient Mouthwash/Gargle (Gi Cocktail Single Dose) 15 ml PRN TID PRN SWSW STOMACH CRAMPING/pain; Start 03/11/16 at 17:45 Insulin Aspart (Novolog) 0-7 UNITS TIDWMEALS SQ ; Start 03/11/16 at 18:30 Dextrose 12.5 gm PRN Q15MIN PRN IV SEE COMMENTS; Start 03/11/16 at 18:15 Morphine Sulfate 2 mg PRN Q2HR PRN IV PAIN; Start 03/11/16 at 18:30 Metformin HCl (Glucophage Xr) 500 mg DAILYWBKFT PO ; Start 03/14/16 at 08:00; Stop 03/14/16 at 08:00; Status DC Non-Formulary Medication 500 mg DAILY PO ; Start 03/12/16 at 09:30; Status UNV Metformin HCl (Glucophage Xr) 500 mg DAILYWBKFT PO ; Start 03/14/16 at 08:00 Active Scripts Active Reported [place] 5-325 Tablet (Acetaminophen/Hydrocodone Bitart) 1 Each Tablet 1 Tab PO PRN Q8HRS PRN Metformin HCl ER (Metformin HCl) 500 Mg [id number] 500 Mg PO DAILY Simvastatin 20 Mg Tablet 20 Mg PO DAILY Amlodipine Besylate 10 Mg Tablet 10 Mg PO DAILY Lisinopril 40 Mg Tablet 1 Tab PO DAILY Vitals/I & O Vital Sign - Last 24 Hours 03/11/16 03/11/16 03/11/16 03/11/16 13:19 13:22 15:20 15:25 Temp 97.8 97.8 Pulse 68 84 Resp 21 18 B/P 215/90 168/82 Pulse Ox 99 O2 Delivery Room Air Room Air 03/11/16 03/11/16 03/11/16 03/11/16 15:35 15:49 15:50 16:04 Temp 97.8 97.8 Pulse 84 96 Resp 18 18 18 B/P 168/82 178/68 Pulse Ox 99 99 99 O2 Delivery Room Air 03/11/16 03/11/16 03/11/16 03/11/16 16:04 19:36 20:00 23:15 Temp 97.7 97.7 97.7 97.7 Pulse 80 73 Resp 18 18 18 B/P 138/54 135/50 Pulse Ox 99 99 95 O2 Delivery Room Air Room Air Room Air 03/12/16 03/12/16 03/12/16 03/12/16 03:00 07:08 08:00 11:02 Temp 97.9 97.7 97.7 97.9 97.7 97.7 Pulse 73 68 69 Resp 18 18 18 B/P 136/74 160/50 136/61 Pulse Ox 100 96 99 O2 Delivery Room Air Room Air Room Air Room Air Intake and Output 03/11/16 03/11/16 03/12/16 15:00 23:00 07:00 Intake Total 1000 ml 126 ml Balance 1000 ml 126 ml ABDULAZIZ LOBO MD Mar 12, 2016 11:53
[2016-03-12] MEDS ORDERED: HYDROCODONE/APAP 5/325MG TABLET. PO PRN (12:15)
[2016-03-12] MEDS: AMLODIPINE BESYLATE 10 MG TABLET PO SCH (12:53)
[2016-03-12] MEDS: LISINOPRIL 40 MG TABLET. PO SCH (12:54)
[2016-03-12 15:00] VITALS: BP 140/78
[2016-03-12 19:20] VITALS: BP_SYST 144; BP_SYST 95; BP_DIAS 65; BP_DIAS 67
[2016-03-12] MEDS ORDERED: SIMVASTATIN 20 MG TABLET PO SCH (21:00)
[2016-03-12 23:57] VITALS: BP 129/57
[2016-03-13 02:46] VITALS: BP 125/56
[2016-03-13] MEDS: PANTOPRAZOLE 40 MG TABLET. PO SCH (05:08)
[2016-03-13 07:00] VITALS: BP 147/82
[2016-03-13] MEDS: INSULIN ASPART 300 UNITS/3 ML INSULN.PEN SQ SCH ×2 (08:00→12:00)
[2016-03-13] MEDS: LISINOPRIL 40 MG TABLET. PO SCH ×2 (08:30→14:34)
[2016-03-13] MEDS: AMLODIPINE BESYLATE 10 MG TABLET PO SCH ×2 (08:30→14:33)
[2016-03-13 11:00] VITALS: BP 168/71
[2016-03-13] MEDS ORDERED: IV RINGERS,LACTATED 1000ML 1,000 ML IV SCH (12:05)
[2016-03-13] MEDS ORDERED: LIDOCAINE 1% 1 ML SYRINGE. ID PRN (12:15)
[2016-03-13] MEDS ORDERED: MIDAZOLAM HCL 2 MG/2 ML VIAL. IV PRN (12:15)
[2016-03-13] MEDS ORDERED: FENTANYL PF 100 MCG/2 ML VIAL. IV PRN ×2 (12:15)
[2016-03-13] MEDS ORDERED: PROPOFOL 20 ML IV ONE (12:16)
[2016-03-13] MEDS ORDERED: LIDOCAINE 2% PF Vial for OR 5 ML VIAL. ONE (12:16)
--- NOTE | 2016-03-13 12:37 | PDOC4 ---
Operative Note Operative Note EGD Meds propofol 200 mg IV Pre-op dx abd pain intractable Post-op dx non-erosive gastritis Plan advance diet today o/p colonoscopy and GES- my office can arrange FABIANA HALL MD Mar 13, 2016 12:37
[2016-03-13 15:00] VITALS: BP 147/59
[2016-03-13] MEDS ORDERED: PANT40TA5 PO (16:18)
--- NOTE | 2016-03-13 16:19 | DISCH ---
DISCHARGE INSTRUCTIONS Condition on Discharge Condition on Discharge: Stable Activity After Discharge Activity Instructions for Disc: No restrictions Diet after Discharge Diet after Discharge: [place], Diabetic No Calorie Level Contacting the DRSelena after DC Call your doctor for: Concerns you may have Follow-Up Follow up with: PCP in 1-2 weeks LIZZIE OCHOA MD Mar 13, 2016 16:19
[2016-03-14] MEDS ORDERED: METFORMIN XR 500 MG TAB.ER.24H PO SCH ×2 (08:00)
== END 2016-03-13 16:33 | disposition home or self-care (01) | DRG 392 ==
LOC: ER 10:51 → 6 SOUTH 13:56
PROVIDERS: ADMIT Internal Medicine; ATTEND Internal Medicine
PROC: 0DJ08ZZ Inspection of Upper Intestinal Tract, Via Natural or Artificial Opening Endoscopic (ICD-10-PCS; principal; 2016-03-13 12:30)
DX: K29.70 Gastritis, unspecified, without bleeding (principal); E11.9 Type 2 diabetes mellitus without complications; E78.00 Pure hypercholesterolemia, unspecified; K76.0 Fatty (change of) liver, not elsewhere classified; I10 Essential (primary) hypertension; N28.1 Cyst of kidney, acquired; Z82.49 Family history of ischemic heart disease and other diseases of the circulatory system; Z83.3 Family history of diabetes mellitus
CPT/HCPCS: 36415; 71020; 74177; 80048; 80053; 81001; 82947; 83690; 85027; 87086; 93005; 96361; 96374; 96375; 96376; J0360; J1815; J2405; J2704; J3010; J7030; J7120; Q9967; S0028; 99285-25

== ENCOUNTER → 2017-07-24 | Outpatient (CLI) | payer OTHER, MEDICAID | END | disposition home or self-care (01) | LOC: MAMMO 09:22 | DX: Z12.31 Encounter for screening mammogram for malignant neoplasm of breast (principal) | CPT/HCPCS: 77063; 77067 ==

== ENCOUNTER → 2017-07-25 | Outpatient (CLI) | payer OTHER, MEDICAID | END | disposition home or self-care (01) | LOC: MAMMO 10:34 | DX: R92.8 Other abnormal and inconclusive findings on diagnostic imaging of breast (principal) | CPT/HCPCS: 76641; 77065 ==

== ENCOUNTER → 2019-09-10 | Outpatient (CLI) | payer OTHER, MEDICAID ==
[~2019-09-10] MED LIST changes: +AMLO10TA8 PO; +HYDR-3164 PO; +LISI-130 PO; +METF-550 PO; -OXYC-323 PO; +OXYC1TAB15 PO; +PANT40TA77 PO; +SIMV20TA18 PO
--- NOTE | 2019-09-10 16:02 | RAD ---
DATE: 09/10/2019 1:19 PM EXAM: MAMMO KWASI SRIKANTH MARX, BREAST LEFT HISTORY: Patient is due for screening but has unresolved asymmetry in the subareolar left breast previously recommended for short-term follow-up by ultrasound. COMPARISON: Bilateral screening mammogram of 07/24/2017, left diagnostic mammogram and breast ultrasound of 07/25/2017 Bilateral CC and MLO views of the breasts were performed. Bilateral breast tomosynthesis was performed in CC and MLO projections. This study was interpreted with Computerized Aided Detection (CAD). Targeted ultrasound of the subareolar left breast was also performed at the same visit. FINDINGS: Breast Density: SCATTERED The breast parenchyma shows scattered fibroglandular densities. Breast parenchyma level B No suspicious masses, microcalcifications or architectural distortion is present to suggest malignancy in either breast. The visualized axillae are unremarkable. Targeted ultrasound of the subareolar left breast showed benign subareolar ducts without intraductal masses, distortion or other suspicious sonographic abnormality. IMPRESSION: No mammographic or targeted left sonographic evidence of malignancy. BI-RADS CATEGORY: 1 NEGATIVE RECOMMENDED FOLLOW-UP: 12M 12 MONTH FOLLOW-UP Annual screening mammography is recommended, unless clinically indicated sooner based on symptoms or change in physical exam. PQRS compliance statement: Patient information was entered into a reminder system with a target due date 09/10/2020 for the next mammogram. Mammography is a sensitive method for finding small breast cancers, but it does not detect them all and is not a substitute for careful clinical examination. A negative mammogram does not negate a clinically suspicious finding and should not result in delay in biopsying a clinically suspicious abnormality. "Our facility is accredited by the [employer] Mammography Program."
== END | disposition home or self-care (01) ==
LOC: MAMMO 13:07
PROVIDERS: ATTEND Pediatrics
DX: R92.2 Inconclusive mammogram (principal)
CPT/HCPCS: 76641; 77066; G0279; 77062

== ENCOUNTER 2020-03-16 10:57 | Emergency (ER) | payer OTHER, MEDICAID ==
[~2020-03-16] VITALS: Ht 157.5 cm; Wt 82.9 kg
[~2020-03-16 10:57] MED LIST changes: +AMLO-187 PO; -AMLO10TA8 PO
--- NOTE | 2020-03-16 11:47 | PHYS DOC ---
Past Medical History Past Medical History: Arthritis, Diabetes-Type II, GERD, High Cholesterol, Hypertension Past Surgical History: Knee Replacement Smoking Status: Current Every Day Smoker Alcohol Use: None Drug Use: None General Adult EDM: Chief Complaint: BACK PAIN OR INJURY HPI: HPI: Patient is a 64 year old female who presented to ER for evaluation of low back pain that radiates to her left buttock to her knee area. The pain is worse whenever she sits on her buttock. Patient denies any bowel or bladder incontinence patient denies any injury. Patient denies any abdominal pain, no nausea or vomiting. Patient has history of hypertension, she took her blood pressure medication prior to arrival. Her symptoms have been going on for the last 3 days. Review of Systems: Review of Systems: Constitutional: Denies fever or chills. [] Eyes: Denies change in visual acuity. [] HENT: Denies nasal congestion or sore throat. [] Respiratory: Denies cough or shortness of breath. [] Cardiovascular: Denies chest pain or edema. [] GI: Denies abdominal pain, nausea, vomiting, bloody stools or diarrhea. [] : Denies dysuria. [] Musculoskeletal: Positive for lower back pain. Integument: Denies rash. [] Neurologic: Denies headache, focal weakness or sensory changes. [] Endocrine: Denies polyuria or polydipsia. [] Lymphatic: Denies swollen glands. [] Psychiatric: Denies depression or anxiety. [] Heart Score: Risk Factors: Risk Factors: DM, Current or recent (<one month) smoker, HTN, HLP, family history of CAD, obesity. Risk Scores: Score 0 - 3: 2.5% MACE over next 6 weeks - Discharge Home Score 4 - 6: 20.3% MACE over next 6 weeks - Admit for Clinical Observation Score 7 - 10: 72.7% MACE over next 6 weeks - Early Invasive Strategies Allergies: Allergies: Allergies Coded Allergies Type Severity Reaction Last Updated Verified No Known Drug Allergies 03/13/16 No Physical Exam: PE: Constitutional: Well developed, well nourished, no acute distress, non-toxic appearance. [] HENT: Normocephalic, atraumatic, bilateral external ears normal, oropharynx moist, no oral exudates, nose normal. [] Eyes: PERRLA, EOMI, conjunctiva normal, no discharge. [] Neck: Normal range of motion, no tenderness, supple, no stridor. [] Cardiovascular:Heart rate regular rhythm, no murmur [] Lungs & Thorax: Bilateral breath sounds clear to auscultation [] Abdomen: Bowel sounds normal, soft, no tenderness, no masses, no pulsatile masses. [] Skin: Warm, dry, no erythema, no rash. [] Back: No midline vertebral tenderness to palpation in the lumbar area, no CVA tenderness. There is left paraspinal muscle tenderness to palpation in the lumbar area. Extremities: No tenderness, no cyanosis, no clubbing, ROM intact, no edema. [] Neurologic: Alert and oriented X 3, normal motor function, normal sensory function, no focal deficits noted. [] Psychologic: Affect normal, judgement normal, mood normal. [] Current Patient Data: Vital Signs: Vital Signs Date Time Temp Pulse Resp B/P (MAP) Pulse Ox O2 Delivery O2 Flow Rate FiO2 03/16/20 11:14 97.3 76 20 210/90 (130) 99 Room Air 97.3 EKG: EKG: [] Radiology/Procedures: Radiology/Procedures: [][facility] [address] [place] [address] IMAGING REPORT Signed PATIENT: TRICIA LUTZ JACCOUNT: [id number] : 1955 LOCATION: ER AGE: 64 SEX: F EXAM STATUS: REG ER ORD. PHYSICIAN: RICHARD REYNOSO DO REASON: LOWER BACK PAIN, RADIATING TO LEFT LEG PROCEDURE: LUMBAR SPINE 2-3V EXAM: AP, lateral and lumbosacral spot views of the lumbar spine DATE: 03/16/2020 11:49 AM INDICATION: Reason: LOWER BACK PAIN, RADIATING TO LEFT LEG / Spl. Instructions: / History: COMPARISON: No Prior FINDINGS: Vertebral body heights are preserved. Mild L5-S1 disc height loss. Trace anterolisthesis of L4 on L5. End plate osteophytic is seen. Multilevel facet degenerative changes L3-4 and below. No acute fracture. IMPRESSION: 1. Multilevel spondylosis as above 2. Negative acute fracture. 3. Trace anterolisthesis of L4 on L5 likely degenerative. Electronically signed by: Nazario Enriquez MD (03/16/2020 12:29 PM) [id number] DICTATED and SIGNED BY: NAZARIO ENRIQUEZ MD DATE: 03/16/20 [id number] 0 Course & Med Decision Making: Course & Med Decision Making Pertinent Labs and Imaging studies reviewed. (See chart for details) [] Dragon Disclaimer: Dragon Disclaimer: This electronic medical record was generated, in whole or in part, using a voice recognition dictation system. Departure Departure Impression: Primary Impression: Acute left-sided back pain with sciatica Disposition: 01 DC HOME SELF CARE/HOMELESS Condition: IMPROVED Referrals: CHARLES HOWARD MD (PCP) Please follow up with your family doctor for reevaluation with outpatient MRI of your lumbar spine next week. Patient Instructions: Sciatica Additional Instructions: Thank you for visiting our Emergency Department. We appreciate you trusting us with your care. If any additional problems come up don't hesitate to return to visit us. Please follow up with your primary care provider so they can plan additional care if needed and know about the problem that you had. If symptoms worsen come back to the Emergency Department. Any concerning symptoms that start such as chest pain, shortness of air, weakness or numbness on one side of the body, running high fevers or any other concerning symptoms return to the ER. Scripts Tramadol Hcl (TRAMADOL HCL) 50 Mg Tablet 50 MG PO QID PRN for PAIN, #20 TAB 0 Refills Prov: RICHARD REYNOSO DO 03/16/20 Naproxen Sodium (ANAPROX DS) 550 Mg Tablet 1 TAB PO BID PRN for PAIN for 15 Days, #30 TAB 0 Refills Prov: RICHARD REYNOSO DO 03/16/20 RICHARD REYNOSO DO Mar 16, 2020 11:47
--- NOTE | 2020-03-16 12:32 | RAD ---
EXAM: AP, lateral and lumbosacral spot views of the lumbar spine DATE: 03/16/2020 11:49 AM INDICATION: Reason: LOWER BACK PAIN, RADIATING TO LEFT LEG / Spl. Instructions: / History: COMPARISON: No Prior FINDINGS: Vertebral body heights are preserved. Mild L5-S1 disc height loss. Trace anterolisthesis of L4 on L5. End plate osteophytic is seen. Multilevel facet degenerative changes L3-4 and below. No acute fractu re. IMPRESSION: 1. Multilevel spondylosis as above 2. Negative acute fracture. 3. Trace anterolisthesis of L4 on L5 likely degenerative. Electronically signed by: Nazario Mack MD (03/16/2020 12:29 PM) [id number]
[2020-03-16] MEDS ORDERED: methylPREDNISolone SOD SUCC PF 125 MG/2 ML VIAL. IM ONE (13:00)
[2020-03-16] MEDS ORDERED: IBUPROFEN 400 MG TABLET. PO ONE (13:00)
[2020-03-16] MEDS ORDERED: MORPHINE SULFATE 4 MG/ML VIAL. IM ONE (13:00)
[2020-03-16 13:15] VITALS: BP 196/84
[2020-03-16] MEDS ORDERED: TRAM50TA PO (13:50)
[2020-03-16] MEDS ORDERED: NAPR-682 PO (13:50)
== END 2020-03-16 13:56 | disposition home or self-care (01) ==
LOC: ER 10:57
DX: M54.42 Lumbago with sciatica, left side (principal); M19.90 Unspecified osteoarthritis, unspecified site; E11.9 Type 2 diabetes mellitus without complications; K21.9 Gastro-esophageal reflux disease without esophagitis; E78.00 Pure hypercholesterolemia, unspecified; I10 Essential (primary) hypertension; F17.200 Nicotine dependence, unspecified, uncomplicated; Z98.890 Other specified postprocedural states
CPT/HCPCS: 72100; 96372; 99284; J2270; J2930

== ENCOUNTER 2020-03-31 08:46 | Emergency (ER) | payer OTHER, MEDICAID ==
[~2020-03-31] VITALS: Ht 157.5 cm; Wt 81.0 kg
[~2020-03-31 08:46] MED LIST changes: +NAPR-682 PO; +TRAM50TA PO
[2020-03-31] MEDS ORDERED: cloNIDine HCL 0.1 MG TABLET PO ONE (09:45)
[2020-03-31] MEDS ORDERED: MORPHINE SULFATE 4 MG/ML VIAL. IM ONE (09:45)
[2020-03-31] MEDS ORDERED: MORPHINE SULFATE 4 MG/ML VIAL. IV ONE ×2 (09:45→11:15)
--- NOTE | 2020-03-31 09:56 | RAD ---
EXAM: Abdomen acute complete. HISTORY: Constipation. COMPARISON: None. FINDINGS: A frontal view of the chest and frontal upright and supine views of the abdomen are obtaine d. There is no infiltrate, pleural effusion or pneumothorax. There is a prominent cardiac silhouette. There is moderate colonic stool. There is no evidence of bowel obstruction. There is no free air. IMPRESSION: 1. Moderate colonic stool. There is no evidence of bowel obstruction. 2. No acute pulmonary finding. Electronically signed by: Cristal Galaviz MD (03/31/2020 9:53 AM) [id number]
[2020-03-31 10:25] LABS: CALCIUM 9.3 mg/dL (8.5-10.1); CREATININE 0.6 mg/dL (0.6-1.0); GFR 121.4; POTASSIUM 3.8 mmol/L (3.5-5.1)
[2020-03-31 10:29] LABS: ALBUMIN 4.1 g/dL (3.4-5.0); ALBUMIN/GLOBULIN RATIO 1.2 (1.0-1.7); BASO # 0.1 x10^3/uL (0.0-0.2); BASO % 1 % (0-3); EOS # 0.1 x10^3/uL (0.0-0.7); EOS % 2 % (0-3); HEMOGLOBIN 14.7 g/dL (12.0-15.5); LYMPH % 43 % (24-48); MAGNESIUM 2.3 mg/dL (1.8-2.4); MEAN CORPUSCULAR HEMOGLOBIN 30 pg (25-35); MEAN CORPUSCULAR HGB CONC 33 g/dL (31-37); MEAN CORPUSCULAR VOLUME 90 fL (79-100); MONO # 0.4 x10^3/uL (0.0-1.1); MONO % 8 % (0-9); NEUT # 2.1 x10^3/uL (1.8-7.7); NEUT % 45 % (31-73); PLATELET COUNT 154 x10^3/uL (140-400); RED BLOOD COUNT 4.89 x10^6/uL (3.50-5.40); RED CELL DISTRIBUTION WIDTH 14.1 % (11.5-14.5); TOTAL BILIRUBIN 0.4 mg/dL (0.2-1.0); TOTAL PROTEIN 7.5 g/dL (6.4-8.2); WHITE BLOOD COUNT 4.6 x10^3/uL (4.0-11.0)
[2020-03-31] MEDS ORDERED: MAGNESIUM CITRATE 296 ML SOLUTION. PO ONE (11:00)
[2020-03-31] MEDS ORDERED: HYDR-2759 PO (11:30)
[2020-03-31] MEDS ORDERED: BISA-42 PO (11:30)
--- NOTE | 2020-03-31 11:31 | PHYS DOC ---
Past Medical History Past Medical History: Arthritis, Diabetes-Type II, GERD, High Cholesterol, Hypertension Past Surgical History: Knee Replacement Smoking Status: Current Every Day Smoker Alcohol Use: None Drug Use: None General Adult EDM: Chief Complaint: BACK PAIN - NO INJURY HPI: HPI: Patient is a 65-year-old female who presented to ER due to low back pain that radiated to her left buttock area that been off and on for several weeks. Patient was evaluated here earlier this month for the same problem, x-ray of her lumbar spine show some arthritic changes and some disc problem. Patient was diagnosed with acute sciatica, she was given NSAIDs and pain medication but did not get any better. Patient also says she haS not had a bowel movement for 3 days. Patient denies any nausea vomiting, no abdominal pain. Patient denies any chest pain, no cough, no trouble breathing. Patient denies any bowel or bladder incontinence. Patient has history hypertension, she is on 2 different blood pressure medications. Patient took her medication before she came in here. Review of Systems: Review of Systems: Constitutional: Denies fever or chills. [] Eyes: Denies change in visual acuity. [] HENT: Denies nasal congestion or sore throat. [] Respiratory: Denies cough or shortness of breath. [] Cardiovascular: Denies chest pain or edema. [] GI: Denies abdominal pain, nausea, vomiting, bloody stools or diarrhea. Positive constipation : Denies dysuria. [] Musculoskeletal: Positive for low back pain that radiates to her left buttock left knee area Integument: Denies rash. [] Neurologic: Denies headache, focal weakness or sensory changes. [] Endocrine: Denies polyuria or polydipsia. [] Lymphatic: Denies swollen glands. [] Psychiatric: Denies depression or anxiety. [] Heart Score: Risk Factors: Risk Factors: DM, Current or recent (<one month) smoker, HTN, HLP, family history of CAD, obesity. Risk Scores: Score 0 - 3: 2.5% MACE over next 6 weeks - Discharge Home Score 4 - 6: 20.3% MACE over next 6 weeks - Admit for Clinical Observation Score 7 - 10: 72.7% MACE over next 6 weeks - Early Invasive Strategies Current Medications: Current Medications Medications (Trade) Dose Ordered Sig/Brittni Start Time Stop Time Status Last Admin Dose Admin Clonidine HCl (Catapres) 0.2 mg 1X ONCE 03/31/20 09:45 03/31/20 09:46 DC 03/31/20 10:03 0.2 MG Magnesium Citrate (Citroma) 296 ml 1X ONCE 03/31/20 11:00 03/31/20 11:01 DC Morphine Sulfate (Morphine Sulfate) 4 mg 1X ONCE 03/31/20 11:15 03/31/20 11:16 DC Allergies: Allergies: Allergies Coded Allergies Type Severity Reaction Last Updated Verified No Known Drug Allergies 03/13/16 No Physical Exam: PE: Constitutional: Well developed, well nourished, no acute distress, non-toxic appearance. [] HENT: Normocephalic, atraumatic, bilateral external ears normal, oropharynx moist, no oral exudates, nose normal. [] Eyes: PERRLA, EOMI, conjunctiva normal, no discharge. [] Neck: Normal range of motion, no tenderness, supple, no stridor. [] Cardiovascular:Heart rate regular rhythm, no murmur [] Lungs & Thorax: Bilateral breath sounds clear to auscultation [] Abdomen: Bowel sounds normal, soft, no tenderness, no masses, no pulsatile masses. [] Skin: Warm, dry, no erythema, no rash. [] Back: No tenderness, no CVA tenderness. [] Extremities: No tenderness, no cyanosis, no clubbing, ROM intact, no edema. [] Neurologic: Alert and oriented X 3, normal motor function, normal sensory function, no focal deficits noted. [] Psychologic: Affect normal, judgement normal, mood normal. [] Current Patient Data: Labs: Laboratory Tests Test 03/31/20 09:57 White Blood Count 4.6 x10^3/uL (4.0-11.0) Red Blood Count 4.89 x10^6/uL (3.50-5.40) Hemoglobin 14.7 g/dL (12.0-15.5) Hematocrit 44.0 % (36.0-47.0) Mean Corpuscular Volume 90 fL (79-100) Mean Corpuscular Hemoglobin 30 pg (25-35) Mean Corpuscular Hemoglobin Concent 33 g/dL (31-37) Red Cell Distribution Width 14.1 % (11.5-14.5) Platelet Count 154 x10^3/uL (140-400) Neutrophils (%) (Auto) 45 % (31-73) Lymphocytes (%) (Auto) 43 % (24-48) Monocytes (%) (Auto) 8 % (0-9) Eosinophils (%) (Auto) 2 % (0-3) Basophils (%) (Auto) 1 % (0-3) Neutrophils # (Auto) 2.1 x10^3/uL (1.8-7.7) Lymphocytes # (Auto) 2.0 x10^3/uL (1.0-4.8) Monocytes # (Auto) 0.4 x10^3/uL (0.0-1.1) Eosinophils # (Auto) 0.1 x10^3/uL (0.0-0.7) Basophils # (Auto) 0.1 x10^3/uL (0.0-0.2) Sodium Level 138 mmol/L (136-145) Potassium Level 3.8 mmol/L (3.5-5.1) Chloride Level 102 mmol/L (98-107) Carbon Dioxide Level 24 mmol/L (21-32) Anion Gap 12 (6-14) Blood Urea Nitrogen 15 mg/dL (7-20) Creatinine 0.6 mg/dL (0.6-1.0) Estimated GFR (Cockcroft-Gault) 121.4 BUN/Creatinine Ratio 25 (6-20) H Glucose Level 135 mg/dL (70-99) H Calcium Level 9.3 mg/dL (8.5-10.1) Magnesium Level 2.3 mg/dL (1.8-2.4) Total Bilirubin 0.4 mg/dL (0.2-1.0) Aspartate Amino Transferase (AST) 12 U/L (15-37) L Alanine Aminotransferase (ALT) 23 U/L (14-59) Alkaline Phosphatase 94 U/L (46-116) Total Protein 7.5 g/dL (6.4-8.2) Albumin 4.1 g/dL (3.4-5.0) Albumin/Globulin Ratio 1.2 (1.0-1.7) Laboratory Tests 03/31/20 09:57 Laboratory Tests 03/31/20 09:57 Vital Signs: Vital Signs Date Time Temp Pulse Resp B/P (MAP) Pulse Ox O2 Delivery O2 Flow Rate FiO2 03/31/20 10:45 16 97 Room Air 03/31/20 10:07 65 204/84 (124) 03/31/20 08:50 98.1 98.1 EKG: EKG: [] Radiology/Procedures: Radiology/Procedures: [][facility] [address] [place] [address] IMAGING REPORT Signed PATIENT: TRICIA LUTZ JACCOUNT: [id number] : 1955 LOCATION: ER AGE: 65 SEX: F EXAM STATUS: REG ER ORD. PHYSICIAN: RICHARD REYNOSO DO REASON: abdominal distension, constipation for 3 days PROCEDURE: ACUTE ABDOMEN SERIES EXAM: Abdomen acute complete. HISTORY: Constipation. COMPARISON: None. FINDINGS: A frontal view of the chest and frontal upright and supine views of the abdomen are obtained. There is no infiltrate, pleural effusion or pneumothorax. There is a prominent cardiac silhouette. There is moderate colonic stool. There is no evidence of bowel obstruction. There is no free air. IMPRESSION: 1. Moderate colonic stool. There is no evidence of bowel obstruction. 2. No acute pulmonary finding. Electronically signed by: Cristal Ruggiero MD (03/31/2020 9:53 AM) [id number] DICTATED and SIGNED BY: CRISTAL RUGGIERO MD DATE: 03/31/20 [id number] 0 Course & Med Decision Making: Course & Med Decision Making Pertinent Labs and Imaging studies reviewed. (See chart for details) Patient is a 65-year-old female who was evaluated in ER due to low back pain eduardo t radiated to area consistent with sciatica. Her blood pressure was elevated. Patient was given medication in ER, her blood pressure improved after her pain was improved. There really no evidence abdominal aortic aneurysm. Patient was discharged home, she will need to follow-up with her family physician for outpatient evaluation with MRI of her lumbar spine. Dragon Disclaimer: Dragon Disclaimer: This electronic medical record was generated, in whole or in part, using a voice recognition dictation system. Departure Departure Impression: Primary Impression: Back pain with left-sided sciatica Additional Impressions: Constipation HTN (hypertension) Disposition: 01 DC HOME SELF CARE/HOMELESS Condition: STABLE Referrals: CHARLES HOWARD MD (PCP) Follow up with your doctor on Sunday for reevaluation. Patient Instructions: Constipation, Adult, Hypertension, Sciatica with Rehab- [facility] Additional Instructions: Thank you for visiting our Emergency Department. We appreciate you trusting us with your care. If any additional problems come up don't hesitate to return to visit us. Please follow up with your primary care provider so they can plan michael tional care if needed and know about the problem that you had. If symptoms worsen come back to the Emergency Department. Any concerning symptoms that start such as chest pain, shortness of air, weakness or numbness on one side of the body, running high fevers or any other concerning symptoms return to the ER. Scripts Bisacodyl (DULCOLAX) 5 Mg Tablet.dr 2 TAB PO DAILY PRN for CONSTIPATION for 12 Days, #24 TAB 0 Refills Prov: RICHARD REYNOSO DO 03/31/20 Hydrocodone/Acetaminophen (Hydrocodone-Acetamin 5-325 mg) 1 Each Tablet 1 EACH PO Q6HRS PRN for PAIN, #15 TAB Prov: RICHARD REYNOSO DO 03/31/20 RICHARD REYNOSO DO Mar 31, 2020 11:31
[2020-03-31 11:36] VITALS: BP 116/56
== END 2020-03-31 11:45 | disposition home or self-care (01) ==
LOC: ER 08:46
DX: M54.42 Lumbago with sciatica, left side (principal); K59.00 Constipation, unspecified; I10 Essential (primary) hypertension; M19.90 Unspecified osteoarthritis, unspecified site; E11.9 Type 2 diabetes mellitus without complications; K21.9 Gastro-esophageal reflux disease without esophagitis; E78.00 Pure hypercholesterolemia, unspecified; F17.200 Nicotine dependence, unspecified, uncomplicated; Z98.890 Other specified postprocedural states
CPT/HCPCS: 36415; 74022; 80053; 83735; 85025; 96374; 96376; 99285; J2270

== ENCOUNTER → 2020-06-11 | Outpatient (CLI) | payer OTHER, MEDICAID ==
[~2020-06-11] MED LIST changes: +BISA-42 PO; +HYDR-2759 PO
--- NOTE | 2020-06-11 10:05 | RAD ---
EXAM: Left knee, 3 views. HISTORY: Pain. COMPARISON: 11/01/2015 FINDINGS: 3 views of the left knee are obtained. There is medial compartment joint space narrowing an d subchondral sclerosis. There is moderate tricuspid renal spurring. There is enthesopathy along the superior patella. There is a trace knee effusion. IMPRESSION: 1. Moderate medial compartment predominant osteoarthritis of the left knee. 2. No acute osseous finding. Electronically signed by: Cristal Galaviz MD (06/11/2020 10:03 AM) [id number]
== END ==
LOC: RAD 09:13
PROVIDERS: ATTEND Pediatrics
DX: M17.12 Unilateral primary osteoarthritis, left knee (principal)
CPT/HCPCS: 73562